=== PATIENT | female | born 1990 | race Caucasian/White ===

== ENCOUNTER 2017-07-21 20:38 | Emergency (ER) | payer BC ==
[2017-07-21 20:51] VITALS: BP 131/84
--- NOTE | 2017-07-21 21:26 | ED Physician Documentation ---
Upper Respiratory Symptoms - HISTORIAN Historian: patient - HPI Stated Complaint: FLU LIKE S/S Chief Complaint: Cough/ Upper Respiratory Additional Information: 2 days of fever/chills "flu", cough, body aches, people told me to go get checked out. taking tylenol, motrin, mucinex, robitussin Onset: days ago Duration: constant Context: multiple patients, same sx. denies: recent foreign travel, insect bite (s) Severity: mild Associated Symptoms: fever, chills, runny nose, sore throat Worsened by Deep Breath: No Further Comments: no - ROS CONST/EYES: denies: weakness CVS/RESP: none LYMPH: denies: leg swelling GI/: none NEURO/PSYCH: denies: fainting, dizziness MS/SKIN: joint pain, muscle aches. denies: rash - PAST HX Lung Disease: none PE Risk Factors: none Surgeries/Procedures: none Allergies/Adverse Reactions: Allergies Allergy/AdvReac Type Severity Reaction Status Date / Time No Known Allergies Allergy Verified 07/21/17 20:51 Home Medications: Ambulatory Orders Medication Instructions Recorded NK [NK] 07/21/17 - SOCIAL HX Smoking History: non-smoker Alcohol Use: none Drug Use: none - FAMILY HX Family History: none - VITAL SIGNS Vital Signs: Vital Signs Temp Pulse Resp BP Pulse Ox 97.7 F 91 H 16 131/84 98 07/21/17 20:39 07/21/17 20:39 07/21/17 20:39 07/21/17 20:39 07/21/17 20:39 - REVIEWED ASSESSMENTS Nursing Assessment Reviewed: Yes Vitals Reviewed: Yes Upper Respiratory Symptoms - EXAM General Appearance: no acute distress, alert EENT: eyes nml inspection, nml ENT inspection, lids & conjunct. nml, pharynx nml Neck: normal inspection, supple Respiratory: no resp. distress, breath sounds nml, no pain on inspiration, speaks full sentences. No: wheezes, rales, rhonchi Abdomen: non-tender CVS: reg rate & rhythm, heart sounds normal, equal pulses Skin: color nml, no rash, warm,dry Extremities: non-tender Neuro/Psych: oriented x3, mood/affect nml Discharge Clincal Impression: Common cold, Viral URI with cough Referrals: Primary Doctor,No [Primary Care Provider] - 2 Days Condition: Good Disposition: 01 HOME, SELF-CARE Decision to Admit: NO Date of Decison to Admit: 07/21/17 Decision Time: 21:26
== END 2017-07-21 21:40 | disposition home or self-care (01) ==
LOC: ED 20:38
DX: J06.9 Acute upper respiratory infection, unspecified (principal); R05 Cough
CPT/HCPCS: 99282